=== PATIENT | male | born 1965 | race African-American/Black ===

== ENCOUNTER 2019-07-03 18:09 | Observation (INO) | payer OTHER, BC ==
[2019-07-03] MEDS ORDERED: Acetaminophen 325 MG TAB PO PRN (21:14)
[2019-07-03] MEDS ORDERED: Ondansetron PF 4 MG/2 ML Vial IVP PRN (21:14)
[2019-07-03] MEDS ORDERED: Ondansetron ODT 4 MG TAB PO PRN (21:14)
[2019-07-03] MEDS ORDERED: Lidocaine 2% Viscous Solution 20 ML, Aluminum & Magnesium Hydroxide 30 ML, Donnatal Eli... SSW SCH (21:45)
[2019-07-03] MEDS ORDERED: Sodium Chloride 0.9% (PF) 10 ML VIAL FS PRN (21:54)
[2019-07-03 22:03] LABS: Troponin I Less than 0.010 ng/mL (< 0.028)
[2019-07-03] MEDS ORDERED: Labetalol HCl 100 MG/20 ML VIAL SLOW IVP PRN (22:59)
[2019-07-03] MEDS ORDERED: hydrALAZINE 20 MG/ML VIAL SLOW IVP PRN (22:59)
[2019-07-03] MEDS ORDERED: Calcium Carbonate 500 MG ChewTAB PO PRN (22:59)
[2019-07-04 00:14] VITALS: BMI 37.0
[2019-07-04 01:04] LABS: Troponin I Less than 0.010 ng/mL (< 0.028)
[2019-07-04] MEDS: Sodium Chloride 0.9% 1,000 ML IV SCH ×2 (03:32→13:46)
[2019-07-04 05:37] LABS: #Eosinphils 0.2 thou/uL (0.0-0.7); #Lymphocytes 2.4 thou/uL (1.20-3.40); #Monocytes 0.6 thou/uL (0.11-0.59); %Basophils 0.3 % (0.0-1.0); %Eosinophils 2.9 % (0.0-10.0); %Lymphocytes 38.9 % (21.0-51.0); %Monocytes 10.3 % (0.0-10.0); %Neutrophils 47.6 % (42.0-75.0); Hemoglobin 13.4 g/dL (14.0-18.0); Mean Corpuscular HGB CONC 33.7 g/dL (32.0-36.0); Mean Platelet Volume 6.6 fL (7.4-10.4); Platelet Count 244 thou/uL (130-400); Red Blood Cell (RBC) Count 4.47 mill/uL (4.70-6.10); White Blood Cell (WBC) Count 6.3 thou/uL (4.8-10.8)
[2019-07-04 05:59] LABS: Anion Gap 11 mmol/L (10-20); BUN (Urea Nitrogen) 11 mg/dL (8.4-25.7); Calc. Creatinine Clearance 98 mL/min (70-130); Calcium 9.4 mg/dL (7.8-10.44); Carbon Dioxide 26 mmol/L (22-29); Chloride 109 mmol/L (98-107); Estimated GFR-MDRD 69; Glucose 109 mg/dL (70-105); Sodium 142 mmol/L (136-145)
--- NOTE | 2019-07-04 07:10 | HP ---
CHIEF COMPLAINT: Chest pain and shortness of breath. HISTORY OF PRESENT ILLNESS: The patient is a 53-year-old male with past medical history significant for hypertension and GERD, who presented to the hospital with complaints of worsening chest pain and shortness of breath. The patient describes his chest pain as a burning sensation. It is exacerbated with deep breaths and also with eating. Because of his worsening symptoms, he did present to the local emergency department for further workup and treatment. On arrival, his blood pressure was significantly elevated, systolic reading of greater than 240. The patient was given IV metoprolol as well as nitroglycerin paste, and his blood pressure quickly recovered. He was given a GI cocktail with complete resolution of his symptoms. He was transferred to our facility for higher level of care. The patient's troponin has been negative x3. His EKG shows sinus rhythm with nonspecific ST and T-wave changes. He states that he was recently hospitalized 2 to 3 months ago in [place], [place] at [facility], where he underwent full cardiac workup which included a stress test and ultimately a left heart catheterization. He was told that he had normal coronary arteries and no evidence of any blockage. [facility] and has been undergoing preliminary workup regarding his acid reflux symptoms. The patient reports a several month history of not only reflux symptoms, which are worse when he lies down, but he also reports some progressive dysphagia, which has required him to eat smaller and smaller meals. He describes that sensation as if "food will not go into his stomach." He has not had any endoscopy or imaging as of yet. Regarding the patient's hypertension, he states that he has been on both beta blockers and calcium channel blockers in the past, however, they "do not work," so he did quit taking them. The patient has also been prescribed a PPI, which he has also been noncompliant with as he says "the food goes straight to my stomach." REVIEW OF SYSTEMS: 12-point review of systems performed and is negative except that stated above. The patient reports no recent illnesses, fever, or chills. He has had no blood in his stool or urine. ALLERGIES: NO KNOWN DRUG ALLERGIES. HOME MEDICATIONS: None currently. As mentioned, the patient has been on beta fior and calcium channel blockers in the past, but quit taking them on his own. He was previously on a PPI as well, but quit taking that as well. PAST MEDICAL HISTORY: Hypertension and GERD. SURGICAL HISTORY: Recent left heart catheterization, which was negative per patient. SOCIAL HISTORY: The patient is a nonsmoker. He does drink socially on occasion. No illicit drug use. He is a . 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 FAMILY HISTORY: Positive for an unknown type of cardiomyopathy in his brother, which did require a heart transplant several years ago. No history of stroke or coronary artery disease. PHYSICAL EXAMINATION: VITAL SIGNS: At the time of my evaluation in the emergency department at 7 p.m., blood pressure 139/90, O2 saturation 96% on room air, respirations 18, and temperature 98.0. GENERAL: This is a well-appearing male, resting comfortably in bed, in no acute distress. HEENT: Head is atraumatic and normocephalic. Mucous membranes are moist. NECK: Trachea is midline. No JVD. CV: S1 and S2. Regular rate and rhythm. No appreciable murmurs, rubs, or gallops. LUNGS: Regular respiratory rate and pattern. Clear to auscultation bilaterally. ABDOMEN: Positive bowel sounds. Soft, nontender. EXTREMITIES: No edema. SKIN: Warm and dry. NEUROLOGIC: Cranial nerves 2 through 12 are grossly intact. The patient is nonfocal. LABORATORY DATA: White blood cell count 6.2, RBC 5.23, hemoglobin 14.3, hematocrit 46.2, and platelet counts are 283. D-dimer negative at 0.27. Sodium 140, potassium 3.8, carbon dioxide 21, anion gap 15, BUN is 9, creatinine 1.4, alkaline phosphatase 170, AST 24, ALT 43. ASSESSMENT: 1. Symptomatic accelerated hypertension, improved with beta fior and nitroglycerin paste, recent negative cardiac workup including negative left heart catheterization per patient. 2. Numerous GI complaints including worsening gastroesophageal reflux disease and dysphagia, requiring the patient to eat smaller and smaller meals. 3. History of essential hypertension, noncompliant with medications. 4. Gastroesophageal reflux disease, noncompliant with PPI. 5. History of noncompliance with antihypertensives and PPIs in the past. 6. Elevated creatinine, 1.4; unknown if this is chronic kidney disease likely hypertensive or if this is an acute kidney injury as there is no baseline lab work to compare it to. PLAN: At this time, we will provide some gentle IV hydration and recheck chemistry in the morning. I will add carvedilol 6.25 mg b.i.d. and titrate up. The patient may benefit from nifedipine as well. We will obtain records from [facility] in [place], [place], but it sounds as if the patient has had a recent negative cardiac workup. His chest pain is largely atypical and I believe related to his acid reflux. We will give him IV Protonix , and continue GI cocktail as needed. We will consult GI and very much appreciate their recommendations. SCDs for DVT prophylaxis. GI prophylaxis has been ordered. Further recommendations based on hospital course. Job ID: [id number] [facility]
[2019-07-04] MEDS: Carvedilol 6.25 MG TAB PO SCH ×2 (08:16→16:42)
[2019-07-04] MEDS ORDERED: Pantoprazole 40 MG VIAL IVP SCH (09:00)
[2019-07-04 12:28] VITALS: TEMP 98.1
[2019-07-04] MEDS ORDERED: PROPOFOL 200 MG/20 ML VIAL ONE (12:44)
[2019-07-04] MEDS ORDERED: Lidocaine 1% PF 5 ML VIAL ONE (12:44)
[2019-07-04] MEDS ORDERED: Ondansetron HCl/PF 4 MG/2 ML Vial IVP PRN (15:39)
[2019-07-04] MEDS ORDERED: Promethazine HCl 25 MG/ML VIAL SLOW IVP PRN (15:39)
[2019-07-04] MEDS ORDERED: Promethazine HCl 25 MG/ML VIAL IM PRN (15:39)
--- NOTE | 2019-07-04 15:55 | CON ---
DATE OF CONSULTATION: 07/04/2019 REASON FOR CONSULTATION: Chest pain, shortness of breath, and also dysphagia. HISTORY OF PRESENT ILLNESS: Mr. Slim Bhatt is a 53-year-old male, who lives in [place], [place]. He usually goes to [facility] in [place]. The patient has severe acid reflux over the years. The patient was hospitalized in [place] 3 months ago with chest pain and dyspnea. Underwent Cardiology evaluation including cardiac cath. It came back negative. The cardiac cath was completely normal. The patient is a truck assembler. He developed chest pain and also some dyspnea. He has history of chronic acid reflux over the years. The acid reflux has been getting worse recently. Complained of severe heartburn, indigestion. Also , gives history of dysphagia to solids food recently. No painful swallowing. In the ER, he was found to have elevated blood pressure. However, once he was given medication metoprolol, his blood pressure is back to normal. He does have history of high blood pressure and is not very compliant with taking medications. He also does not take any other medicines . At the present time, he appears very comfortable. There is no distress. He is a very heavy-set muscular individual. He denies any chest pain or any dyspnea at the present time. The patient has no palpitation. The patient has abdominal pain. No nausea or vomiting. Bowel movements regular. No hematochezia or any melena. No other relevant history. ALLERGIES: NONE. SOCIAL HISTORY: The patient does not smoke, but drinks alcohol socially. No drug use or drug abuse. MEDICAL ILLNESS: 1. Hypertension. 2. Chronic acid reflux. 3. Negative cardiac cath in [place], [place], 3 months ago. FAMILY HISTORY: Brother with cardiomyopathy and had heart transplant. No history of stroke. No history of any diabetes or hypertension. No history of any cancer. REVIEW OF SYSTEMS: Ten-point system review; CONSTITUTIONAL: No history of weight loss. No history of fever. He has good exercise tolerance. HEAD: No chronic headache. No syncope. EYES: No diplopia or impaired vision. EARS: No hearing loss, any bleeding, or pain. NOSE: No nose bleed. THROAT: No sore throat. NECK: No stiffness or pain. LUNGS: No chronic coughing , hemoptysis CARDIOVASCULAR: Chest pain, dyspnea, but he has had a cardiac cath 3 months ago , which was negative. No orthopnea or PND. GI: No rectal bleeding, any melena, or any change in bowel habits. , musculoskeletal, neuroendocrine, psychiatry are unremarkable. PHYSICAL EXAMINATION: GENERAL: The patient appears very comfortable. He is a well-built, muscular individual. He is in no distress. VITAL SIGNS: Blood pressure has come back to normal today. Temperature 98.1 degrees Fahrenheit, pulse is 81, blood pressure 146/93. HEENT: Conjunctivae are clear. NECK: Supple. No adenitis or thyromegaly. CARDIOVASCULAR SYSTEM: First and second heart sounds are normal. LUNGS: Clear to auscultation. ABDOMEN: Soft. No organomegaly. No tenderness. No masses. EXTREMITIES: Reveal no edema. CENTRAL NERVOUS SYSTEM: within normal limits. ADMITTING LABORATORY DATA: CBC; WBC 6300, hemoglobin 13.4, hematocrit 39.8, MCV 89, platelet count is 144,000, polymorphs 47, lymphocytes 38, monocytes 10. Chemistry panel; lytes are normal, BUN is 11, creatinine is 1.32, glucose 109, calcium 9.4. Troponin is less than 0.010. CLINICAL IMPRESSION: 1. A 53-year-old male with chronic acid reflux, comes with some dyspnea and chest pain. The patient has had negative cardiac cath 3 months ago in [place], [place]. The patient also has history of dysphagia of recent onset. 2. Hypertension. 3. Chronic acid reflux with negative cardiac cath about 3 months ago in [place]. PLAN: 1. Empiric PPI therapy. 2. EGD later on today and we will make further recommendation after EGD. Job ID: [id number] [facility]
[2019-07-04 16:42] VITALS: BP 161/99
--- NOTE | 2019-07-04 22:43 | OP ---
DATE OF PROCEDURE: 07/04/2019 PROCEDURES PERFORMED: 1. Esophagogastroduodenoscopy with biopsy. 2. Esophageal dilation with a 50-Malian Tapia dilator. PREOPERATIVE DIAGNOSES: Severe acid reflux, atypical chest pain, dysphagia. POSTOPERATIVE DIAGNOSES: 1. Normal vocal cords. 2. Normal esophageal mucosa throughout except for the gastroesophageal junction where he had a linear erosion. 3. No esophageal stricture seen. 4. Normal stomach and duodenum. DESCRIPTION OF PROCEDURE: The patient was placed on his left lateral position and was given sedation by Anesthesia Department. A Pentax video gastroscope under direct vision passed down the oropharynx, past the GE junction into the stomach. The vocal cords appeared very healthy. Although, the patient complains of classical dysphagia to solid food, on endoscopy, no esophageal narrowing seen. Also, esophageal mucosa appeared normal throughout. However, at the GE junction, he hada linear erosion_.. Biopsy obtained from the area. Retroflexion failed to show any pathology in the fundus or cardia. The gastric body, gastric antrum, no pathology seen. The duodenal bulb, descending duodenum, no pathology. The scope was withdrawn back to the stomach. The stomach was decompressed and the scope was removed. Because of h/o dysphagia a 50-Malian Tapia dilator was assed down the esophagus This was easily passed down with no resistance. DISCHARGE RECOMMENDATION: 1. Low-sodium diet. 2. Protonix 40 once a day. 3. From GI standpoint, he can be discharged home. Job ID: [id number] [facility]
--- NOTE | 2019-07-05 07:05 | DIS ---
DATE OF ADMISSION: 07/03/2019 DATE OF DISCHARGE: 07/04/2019 DISCHARGE DISPOSITION: To home. PRIMARY DISCHARGE DIAGNOSES: 1. Esophageal erosion with gastroesophageal reflux disease. 2. Chest discomfort due to above. SECONDARY DISCHARGE DIAGNOSES: 1. Hypertension. 2. Obesity. PROCEDURES DONE DURING HOSPITALIZATION: The patient has had upper endoscopy done today by Dr. Redmond, which showed one large esophageal erosion. Biopsies were obtained of this area. H and H have remained stable around 13 and 39 and platelet count 244. BUN and creatinine of 11 and 1.3. Troponin x4 is negative. DISCHARGE MEDICATIONS: 1. Toprol-XL 50 mg p.o. daily. 2. Norvasc 5 mg p.o. daily. 3. Protonix 40 mg p.o. daily for 30 days. 4. Mucinex 600 mg p.o. twice daily along with Tessalon and saline nasal spray for postnasal drip and congestion at night. ALLERGIES: NO KNOWN DRUG ALLERGIES. DISCHARGE PLAN: The patient is to follow up with his primary care physician in [facility] in 1 week. BRIEF COURSE DURING HOSPITALIZATION: The patient initially came in with complaints of epigastric pain with radiation to his retrosternal chest area with burning sensation. He also complained of nasal congestion with postnasal drip and difficulty breathing at night. He had complete cardiac workup in [facility] 3 months back including a cardiac cath with no intervention done for the same. In view of this, Gastroenterology consultation with Dr. Redmond was requested , the patient apparently complained of difficulty swallowing and dysphagia symptoms on arrival. Upper endoscopy done by Dr. Redmond has not revealed any strictures. He has one large esophageal erosion, likely due to GERD. This area was biopsied. He will follow up with Dr. Redmond for further report on the biopsy. He has otherwise remained hemodynamically stable and will be shortly discharged to home. He was cleared by Dr. Redmond for discharge. The patient has a BMI of around 37 and would benefit from outpatient sleep study via his primary care physician. Please note, I have seen and examined the patient on the day of discharge. Job ID: [id number] [facility]
== END 2019-07-04 19:37 | disposition home or self-care (01) ==
LOC: ERS 18:09 → 2SW 23:24
PROVIDERS: ADMIT Internal Medicine; ATTEND Internal Medicine
PROC: 0DB58ZX Excision of Esophagus, Via Natural or Artificial Opening Endoscopic, Diagnostic (ICD-10-PCS; principal; 2019-07-04)
PROC: 0D757ZZ Dilation of Esophagus, Via Natural or Artificial Opening (ICD-10-PCS; 2019-07-04)
DX: K22.10 Ulcer of esophagus without bleeding (principal); K21.0 Gastro-esophageal reflux disease with esophagitis; I10 Essential (primary) hypertension; E66.9 Obesity, unspecified; R79.89 Other specified abnormal findings of blood chemistry; Z68.37 Body mass index [BMI] 37.0-37.9, adult; Z79.899 Other long term (current) drug therapy; Z91.14 Patient's other noncompliance with medication regimen
CPT/HCPCS: 36415; 80048; 84484; 85025; 88305; 88312; 88313; 93005; 96361; 96374; C9113; G0378; J2001; J2704

== ENCOUNTER 2019-12-12 20:16 | Emergency (ER) | payer BC, OTHER | END 2019-12-12 21:18 | disposition home or self-care (01) | LOC: ERS 20:16 | DX: J32.9 Chronic sinusitis, unspecified (principal); I10 Essential (primary) hypertension; K21.9 Gastro-esophageal reflux disease without esophagitis | CPT/HCPCS: 99281 ==